=== PATIENT | male | born 1955 | race Caucasian/White ===

== ENCOUNTER 2018-05-03 15:48 | Inpatient (IN) | payer MEDICARE, MEDICAID ==
[~2018-05-03] VITALS: Ht 172.7 cm; Wt 95.3 kg
[2018-05-03] MEDS ORDERED: ACETAMINOPHEN 325 MG TABLET PO PRN (21:00)
[2018-05-03] MEDS ORDERED: MAGNESIUM HYDROXIDE 30 ML UDC PO PRN (21:00)
[2018-05-03] MEDS ORDERED: MAG HYDROX/AL HYDROX/SIMETH 30 ML UDC PO PRN (21:00)
[2018-05-03] MEDS ORDERED: TEMAZEPAM 7.5 MG CAPSULE PO PRN (21:00)
[2018-05-03] MEDS ORDERED: MULT1TAB73 PO (21:20)
[2018-05-03] MEDS ORDERED: AMLO5TAB9 PO (21:22)
[2018-05-03] MEDS ORDERED: ASCO500T8 PO (21:23)
[2018-05-03] MEDS ORDERED: ATOR40TA PO (21:24)
[2018-05-03] MEDS ORDERED: CHLO25CA22 PO (21:26)
[2018-05-03] MEDS ORDERED: FOLI1TAB16 PO (21:27)
[2018-05-03] MEDS ORDERED: SERT100T PO (21:28)
[2018-05-03] MEDS ORDERED: QUET100T PO (21:28)
[2018-05-03] MEDS ORDERED: THIA100T74 PO (21:29)
[2018-05-03] MEDS ORDERED: ZINC220C6 PO (21:30)
[2018-05-03 22:37] VITALS: BP 135/84
[2018-05-03] MEDS: LORAZEPAM 1 MG TABLET PO PRN (23:50)
--- NOTE | 2018-05-04 02:21 | NUR ---
ADMISSION NOTES ADMITTED THIS 63Y/O MALE, PATIENT ADMITTED FROM [facility] , PT IS ON 5150 HOLD , PER HOLD 5150 , DTS AND SUCIDIAL IDEATION WANTED TO HURT SELF,DEPRESSION ,LOST HIS RECIDENCY,ALCOHOL RELASPE, , UPON FACE TO FACE ASSESSMENT PATIENT IS A&O X-2,3 DEPRESSED,DISORGNIZED ,FLAT AFFECT ,EASILY AGITATED , PT.IS POOR HISTORIAN, POOR INSIGHT ,POOR JUDGEMENT ,V/S WNL, NO ACUTE DISTRESS NOTED , MD AWARE AND NOTIFIED OF THE ADMISSION , PT. ALLOWED ONLY SUPERFICIAL SKIN ASSESSMENT, PICTURES TAKEN AND PLACED IN THE CHART ,ENCOURAGED PT. VERBALIZED ANY FEELING CONCERN TO STAFF, ORIENT TO UNIT POLICY, WILL CONTINUE TO MONITOR FOR Q15, CONTRACT FOR SAFETY AND BEHAVIOR.
[2018-05-04 07:19] LABS: BASOPHILS % (AUTO) 0.7 % (0.0-2.0); EOSINOPHILS % (AUTO) 2.8 % (0.0-6.0); HEMATOCRIT 43 % (39-51); HEMOGLOBIN 14.8 g/dL (13.5-17.5); LYMPHOCYTES # (AUTO) 1.2 /CMM (0.8-4.8); LYMPHOCYTES % (AUTO) 16.5 % (20.0-44.0); MEAN CORPUSCULAR HGB CONC 34 g/dl (31.0-36.0); MEAN CORPUSCULAR VOLUME 98 fL (80-96); MONOCYTES # (AUTO) 0.6 /CMM (0.1-1.30); PLATELET COUNT (AUTO) 81 /CMM (150-450); RED BLOOD CELL COUNT(AUTO) 4.45 MIL/uL (4.5-6.0)
[2018-05-04 07:31] LABS: ALBUMIN 3.7 g/dL (3.4-5.0); BILIRUBIN,TOTAL 2.3 mg/dL (0.2-1.0); CALCIUM, SERUM 8.8 mg/dL (8.5-10.1); CREATININE 0.7 mg/dL (0.6-1.3); POTASSIUM 3.5 mmol/L (3.5-5.1); TOTAL PROTEIN, SERUM 6.8 g/dL (6.4-8.2)
[2018-05-04 07:52] LABS: LYMPHOCYTES % (MANUAL) 14 % (16-48); MONOCYTES % (MANUAL) 11 % (0-11.0); NEUTROPHILS % (MANUAL) 75 (42-76)
[2018-05-04 08:00] VITALS: BP 142/95
[2018-05-04] MEDS: LORAZEPAM 1 MG TABLET PO PRN (08:54)
--- NOTE | 2018-05-04 10:41 | NUR ---
RN NOTE: ALTAGRACIA NOTIFIED OF MED RECON.
[2018-05-04] MEDS: CHLORDIAZEPOXIDE HCL 25 MG CAPSULE PO SCH ×2 (12:50→17:15)
[2018-05-04 16:00] VITALS: BP 146/90
[2018-05-04] MEDS: SERTRALINE HCL 50 MG TABLET PO SCH (17:15)
[2018-05-04] MEDS: ATORVASTATIN 40 MG TABLET PO SCH (18:24)
--- NOTE | 2018-05-04 18:24 | NUR ---
RN NOTE: COMPUTER WITH SCANNER IS TAKEN. ADMINISTERED ATORVASTATIN TO PATIENT WITHOUT SCANNING.
[2018-05-04 19:51] LABS: APPEARANCE,URINE SL CLOUDY (CLEAR); BILIRUBIN,URINE 1+ (NEGATIVE); BLOOD, URINE NEGATIVE Ery/uL (NEGATIVE); COLOR,URINE YELLOW (YELLOW); KETONES,URINE TRACE (NEGATIVE); LEUKOCYTE ESTERASE ,URINE NEGATIVE (NEGATIVE); NITRITE, URINE NEGATIVE (NEGATIVE); PH,URINE 6.5 (5.0-8.0); PROTEIN,URINE NEGATIVE (NEGATIVE); UGLUCOSE NEGATIVE (NEGATIVE); UROBILINOGEN,URINE 0.2 EU/dL (0.2)
[2018-05-04 20:00] VITALS: BP 127/60
[2018-05-04 20:35] VITALS: BP 127/60
[2018-05-04 21:35] LABS: BACTERIA,URINE None seen /HPF (None Seen); RBC,URINE 0-2 /HPF (0-2); SQUAMOUS EPITHELIAL CELL,UR Rare /HPF (None Seen); WBC,URINE 0-2 /HPF (0-3)
--- NOTE | 2018-05-05 04:53 | NUR ---
RN NOTES REPORTED URIANALYSIS PROFILE RESULTS, NO NEW ORDERS AT THIS TIME.
[2018-05-05 07:40] LABS: ALBUMIN 3.8 g/dL (3.4-5.0); CREATININE 0.8 mg/dL (0.6-1.3); MAGNESIUM 1.8 mg/dL (1.8-2.4); PHOSPHORUS 3.5 mg/dL (2.5-4.9); POTASSIUM 3.7 mmol/L (3.5-5.1); TOTAL PROTEIN, SERUM 7.3 g/dL (6.4-8.2)
[2018-05-05 08:00] VITALS: BP 144/78
[2018-05-05] MEDS: ZINC SULFATE 220 MG CAPSULE PO SCH (10:21)
[2018-05-05] MEDS: THIAMINE HCL 100 MG TABLET PO SCH (10:21)
[2018-05-05] MEDS: AMLODIPINE BESYLATE 5 MG TABLET PO SCH (10:21)
[2018-05-05] MEDS: LORAZEPAM 1 MG TABLET PO PRN (10:21)
[2018-05-05] MEDS: SERTRALINE HCL 50 MG TABLET PO SCH (10:21)
[2018-05-05] MEDS: CHLORDIAZEPOXIDE HCL 25 MG CAPSULE PO SCH ×3 (10:22→17:11)
[2018-05-05] MEDS: FOLIC ACID 1 MG TABLET PO SCH (10:22)
--- NOTE | 2018-05-05 10:53 | NUR ---
WOUND CARE CONSULT: PT PRESENTS AMBULATORY AND CONTINENT WITH ESCHARS TO LEFT TOES, PRESENT ON ADMISSION. DRY ABRASIONS NOTED TO ARMS PRESENT ON ADMISSION. RECOMMEND DPM CONSULT. PT EXAMINED BY . IN AGREEMENT WITH PLAN OF CARE.
--- NOTE | 2018-05-05 11:15 | NUR ---
Initial Discharge Plan: Pt is currently homeless and does not have a relationship with his family members. Per pt, he does not want to be placed in a sober living and would be more interested in a group home facility. SW will work with the pt and the MD regarding appropriate discharge planning. SW will form a safe and proper discharge.
[2018-05-05 16:00] VITALS: BP 140/91
--- NOTE | 2018-05-05 16:19 | NUR ---
Group note: Pt attended a group session on 05/05/18 at 11AM discussing the topic of what memory resonates the most with them in their life and why it does. S: Pt stated, My aunt was the one person in my life that I had an authentic relationship with. She loved me like I was one of her own children. Which was something that my own mother was incapable of doing. O: Pt was present during the group session and was cooperative. Pt appeared to be in a depressed mood and presented with a tearful and emotional affect. Pt appeared to be anxious when opening up about his loved ones and began to move around in his chair. A: Pt understood that his mother had a past that really affected her because there was a lack of love it and therefore she was unable to show love to the pt as a result. He stated that he understood that and that he cannot hold it against her for the way that she treated him. He stated that he was grateful to have someone like his aunt in his life. P: Pt will continue milieu treatment and medication stabilization.
[2018-05-05] MEDS: ATORVASTATIN 40 MG TABLET PO SCH (17:11)
[2018-05-05 20:23] VITALS: BP 117/74
[2018-05-06] MEDS: LORAZEPAM 1 MG TABLET PO PRN (00:20)
[2018-05-06 07:39] LABS: ALBUMIN 3.4 g/dL (3.4-5.0); BILIRUBIN,TOTAL 1.3 mg/dL (0.2-1.0); CREATININE 0.8 mg/dL (0.6-1.3); MAGNESIUM 1.9 mg/dL (1.8-2.4); POTASSIUM 3.9 mmol/L (3.5-5.1); TOTAL PROTEIN, SERUM 6.9 g/dL (6.4-8.2)
[2018-05-06 08:00] VITALS: BP 139/80
[2018-05-06] MEDS: FOLIC ACID 1 MG TABLET PO SCH (09:35)
[2018-05-06] MEDS: THIAMINE HCL 100 MG TABLET PO SCH (09:36)
[2018-05-06] MEDS: CHLORDIAZEPOXIDE HCL 25 MG CAPSULE PO SCH ×3 (09:36→17:42)
[2018-05-06] MEDS: SERTRALINE HCL 50 MG TABLET PO SCH (09:36)
[2018-05-06] MEDS: ZINC SULFATE 220 MG CAPSULE PO SCH (09:37)
[2018-05-06] MEDS: AMLODIPINE BESYLATE 5 MG TABLET PO SCH (09:38)
--- NOTE | 2018-05-06 11:41 | NUR ---
0800 ASSUMED CARE OF PATIENT. PATIENT ALERT AND ORIENTED TIMES 2-3. PATIENT DENIES SI AND HI AT THIS TIME. PATIENT IN ROOM WITH NO SIGNS OF DISTRESS AT THIS TIME. PATIENT HAS SLIGHT TREMORS. PATIENTS VITALS STABLE. PATIENT DENIES PAIN AT THIS TIME. 0900 PATIENT MEDICATION COMPLIANT WITH ALL MEDICATIONS. PATIENT CALM AND COOPERATIVE. 1015 PATIENT IN DAY ROOM PARTICIPATING IN GROUPS. NO BEHAVIORAL PROBLEMS NOTED. 1130 PATIENT IN DAY ROOM INTERACTING WITH PEERS. PATIENT CALM AND COOPERATIVE. NO PRNS NEEDED. WILL CONTINUE TO MONITOR THROUGHOUT SHIFT.
[2018-05-06 16:02] VITALS: BP 126/77
[2018-05-06] MEDS: ATORVASTATIN 40 MG TABLET PO SCH (17:42)
--- NOTE | 2018-05-06 18:01 | NUR ---
1800 PATIENT IN BED RESTING AT THIS TIME. PATIENT DENIES SI AND HI THROUGHOUT SHIFT. PATIENT VITALS STABLE. PATIENT DENIES PAIN. PATIENT HAS NO SIGNS OF DISTRESS AT THIS TIME PATIENT MEDICATION COMPLIANT THROUGHOUT SHIFT. PATIENT HAS NO BEHAVIORAL PROBLEMS. PATIENT CALM AND COOPERATIVE. WILL ENDORSE TO EXPORT PACKER. BLAYNE GARCIA RN
[2018-05-06 20:00] VITALS: BP 104/50
[2018-05-07 08:00] VITALS: BP 131/69
[2018-05-07] MEDS: FOLIC ACID 1 MG TABLET PO SCH (08:22)
[2018-05-07] MEDS: CHLORDIAZEPOXIDE HCL 25 MG CAPSULE PO SCH ×3 (08:22→17:21)
[2018-05-07] MEDS: AMLODIPINE BESYLATE 5 MG TABLET PO SCH (08:22)
[2018-05-07] MEDS: ZINC SULFATE 220 MG CAPSULE PO SCH (08:22)
[2018-05-07] MEDS: THIAMINE HCL 100 MG TABLET PO SCH (08:23)
[2018-05-07] MEDS: SERTRALINE HCL 50 MG TABLET PO SCH (08:23)
--- NOTE | 2018-05-07 13:11 | NUR ---
SW sent a referral to two [facility]dc facilities for the pt that are listed below: [facility] (with attention to Marcelle) to the fax number: [phone] [facility] (with attention to Rebecca) to the fax number: [phone].
--- NOTE | 2018-05-07 14:09 | NUR ---
Rebecca ([phone] ext [phone]) called the SW and informed her that the pt has been in a correction facility before and would like to know which one he was admitted in previously because there is a share of cost that has not been paid at this time. She stated that she would speak to her retail director and determine whether or not the pt is accepted to the facility or not.
[2018-05-07 16:00] VITALS: BP 128/71
--- NOTE | 2018-05-07 16:01 | NUR ---
Rebecca ([phone]) from [facility] called the SW and stated that the pt is accepted to their facility.
[2018-05-07] MEDS: ATORVASTATIN 40 MG TABLET PO SCH (17:21)
[2018-05-07 20:00] VITALS: BP 108/54
[2018-05-08 08:00] VITALS: BP 125/73
[2018-05-08] MEDS: AMLODIPINE BESYLATE 5 MG TABLET PO SCH (08:27)
[2018-05-08] MEDS: SERTRALINE HCL 50 MG TABLET PO SCH (08:27)
[2018-05-08] MEDS: CHLORDIAZEPOXIDE HCL 25 MG CAPSULE PO SCH ×3 (08:27→16:35)
[2018-05-08] MEDS: ZINC SULFATE 220 MG CAPSULE PO SCH (08:28)
[2018-05-08] MEDS: THIAMINE HCL 100 MG TABLET PO SCH (08:28)
[2018-05-08] MEDS: FOLIC ACID 1 MG TABLET PO SCH (08:28)
[2018-05-08 16:00] VITALS: BP 125/69
[2018-05-08] MEDS: ATORVASTATIN 40 MG TABLET PO SCH (17:07)
--- NOTE | 2018-05-08 19:30 | NUR ---
GPS RN NOTE, RECEIVED PATIENT AWAKE AND IN BED NO S/S OR COMPLAINTS OF PAIN AT THIS TIME. PATIENT IS DISPLAYING NO S/S OF APPARENT DISTRESS AT THIS TIME. PATIENT BREATHING IS UNLABORED WITH EQUAL RISE AND FALL OF THE CHEST. PATIENT IS ALERT AND ORIENTED X 2 ON ROOM AIR WITH A SPO2 0F 95%. PATIENT IS MED COMPLAINT, DISORGANIZED, DEPRESSED, CONFUSED AT TIMES, AND NEEDS REORIENTATION. PATIENT DENIES SUICIDE AND HOMICIDAL IDEATIONS AT THIS TIME. PATIENT ASSISTED WITH TURNING AND REPOSITIONING Q2HR AND PRN FOR COMFORT AND CIRCULATION. PATIENT HAS NO NEEDS AT THIS TIME. PATIENT EDUCATED ON THE USE OF THE CALL KEYS. PATIENT BED SIDE RAILS ARE UP X 2 FOR SAFETY, BED IS LOCKED AND LOW. WILL CONTINUE TO MONITOR AND MAINTAIN SAFETY Q15 MIN WITH THE HELP OF STAFF.
[2018-05-08 20:00] VITALS: BP 111/57
[2018-05-09 08:00] VITALS: BP 128/73
[2018-05-09] MEDS: SERTRALINE HCL 50 MG TABLET PO SCH (08:22)
[2018-05-09] MEDS: FOLIC ACID 1 MG TABLET PO SCH (08:22)
[2018-05-09] MEDS: CHLORDIAZEPOXIDE HCL 25 MG CAPSULE PO SCH ×3 (08:24→17:27)
[2018-05-09] MEDS: ZINC SULFATE 220 MG CAPSULE PO SCH (08:24)
[2018-05-09] MEDS: AMLODIPINE BESYLATE 5 MG TABLET PO SCH (08:25)
[2018-05-09] MEDS: THIAMINE HCL 100 MG TABLET PO SCH (08:25)
[2018-05-09] MEDS: LORAZEPAM 1 MG TABLET PO PRN (08:27)
--- NOTE | 2018-05-09 08:27 | NUR ---
RN NOTES ADMINISTERED ATIVAN 1 MG PO,PRN FOR ANXIETY PER PATIENT REQUEAST V/S TAKEN BP-128/73, P-62, CONTINUED MONITORING.
[2018-05-09 16:00] VITALS: BP 108/67
[2018-05-09 16:42] LABS: BASOPHILS % (AUTO) 0.6 % (0.0-2.0); EOSINOPHILS % (AUTO) 3.5 % (0.0-6.0); HEMATOCRIT 43 % (39-51); HEMOGLOBIN 14.6 g/dL (13.5-17.5); LYMPHOCYTES # (AUTO) 1.4 /CMM (0.8-4.8); LYMPHOCYTES % (AUTO) 25.4 % (20.0-44.0); MEAN CORPUSCULAR HGB CONC 34 g/dl (31.0-36.0); MEAN CORPUSCULAR VOLUME 99 fL (80-96); MONOCYTES % (AUTO) 17.1 % (2.0-12.0); NEUTROPHILS % (AUTO) 53.4 % (43.0-81.0); PLATELET COUNT (AUTO) 185 /CMM (150-450); WHITE BLOOD COUNT (AUTO) 5.7 K/uL (4.3-11.0)
[2018-05-09 16:58] LABS: ALBUMIN 3.5 g/dL (3.4-5.0); BILIRUBIN,TOTAL 0.5 mg/dL (0.2-1.0); CALCIUM, SERUM 8.8 mg/dL (8.5-10.1); CREATININE 1.1 mg/dL (0.6-1.3); POTASSIUM 3.7 mmol/L (3.5-5.1); TOTAL PROTEIN, SERUM 6.7 g/dL (6.4-8.2)
[2018-05-09] MEDS: ATORVASTATIN 40 MG TABLET PO SCH (17:27)
--- NOTE | 2018-05-09 19:30 | NUR ---
GPS RN NOTE, RECEIVED PATIENT AWAKE AND IN BED NO S/S OR COMPLAINTS OF PAIN AT THIS TIME. PATIENT IS DISPLAYING NO S/S OF APPARENT DISTRESS AT THIS TIME. PATIENT BREATHING IS UNLABORED WITH EQUAL RISE AND FALL OF THE CHEST. PATIENT IS ALERT AND ORIENTED X 2 ON ROOM AIR WITH A SPO2 0F 94%. PATIENT IS MED COMPLAINT, COOPERATIVE, DISORGANIZED, DEPRESSED, AND NEEDS REORIENTATION. PATIENT DENIES SUICIDE AND HOMICIDAL IDEATIONS AT THIS TIME. PATIENT ASSISTED WITH TURNING AND REPOSITIONING Q2HR AND PRN FOR COMFORT AND CIRCULATION. PATIENT HAS NO NEEDS AT THIS TIME. PATIENT EDUCATED ON THE USE OF THE CALL KEYS. PATIENT BED SIDE RAILS ARE UP X 2 FOR SAFETY, BED IS LOCKED AND LOW. WILL CONTINUE TO MONITOR AND MAINTAIN SAFETY Q15 MIN WITH THE HELP OF STAFF.
--- NOTE | 2018-05-09 20:00 | NUR ---
GPS RN NOTE, PATIENT REFUSED HAVE A SKIN EXAM AND PICTURES DONE TONIGHT. OFFERED TO TAKE PICTURES THREE TIMES AND STILL PATIENT REFUSED STATING, " I'M ALL SET I DON'T WANT PICTURES TAKEN OF MY SCABS ". EDUCATED THIS PATIENT ON OUR [facility] POLICY ON SKIN EXAMS AND TAKING PICTURES. WILL CONTINUE TO MONITOR THIS PATIENT.
[2018-05-09 20:27] VITALS: BP 116/67
[2018-05-10 07:09] LABS: BASOPHILS % (AUTO) 0.3 % (0.0-2.0); EOSINOPHILS % (AUTO) 3.6 % (0.0-6.0); HEMATOCRIT 43 % (39-51); HEMOGLOBIN 14.3 g/dL (13.5-17.5); LYMPHOCYTES # (AUTO) 1.2 /CMM (0.8-4.8); LYMPHOCYTES % (AUTO) 23.8 % (20.0-44.0); MEAN CORPUSCULAR HGB CONC 34 g/dl (31.0-36.0); MEAN CORPUSCULAR VOLUME 99 fL (80-96); MONOCYTES # (AUTO) 0.9 /CMM (0.1-1.30); MONOCYTES % (AUTO) 18.8 % (2.0-12.0); NEUTROPHILS # (AUTO) 2.6 /CMM (1.8-8.9); NEUTROPHILS % (AUTO) 53.5 % (43.0-81.0); PLATELET COUNT (AUTO) 187 /CMM (150-450); RED BLOOD CELL COUNT(AUTO) 4.31 MIL/uL (4.5-6.0); WHITE BLOOD COUNT (AUTO) 4.9 K/uL (4.3-11.0)
[2018-05-10 07:17] LABS: CALCIUM, SERUM 8.5 mg/dL (8.5-10.1); CREATININE 0.9 mg/dL (0.6-1.3); POTASSIUM 3.8 mmol/L (3.5-5.1)
[2018-05-10 07:18] LABS: ALBUMIN 3.3 g/dL (3.4-5.0); BILIRUBIN,TOTAL 0.6 mg/dL (0.2-1.0); MAGNESIUM 1.8 mg/dL (1.8-2.4); PHOSPHORUS 3.1 mg/dL (2.5-4.9); TOTAL PROTEIN, SERUM 6.4 g/dL (6.4-8.2)
[2018-05-10 07:53] LABS: BAND % (MANUAL) 2 % (0.0-5.0); EOSINOPHILS % (MANUAL) 3 % (0-4); LYMPHOCYTES % (MANUAL) 23 % (16-48); MONOCYTES % (MANUAL) 12 % (0-11.0); NEUTROPHILS % (MANUAL) 60 (42-76)
[2018-05-10 08:00] VITALS: BP 100/78
[2018-05-10] MEDS: CHLORDIAZEPOXIDE HCL 25 MG CAPSULE PO SCH ×2 (08:33→17:45)
[2018-05-10] MEDS: THIAMINE HCL 100 MG TABLET PO SCH (08:33)
[2018-05-10] MEDS: SERTRALINE HCL 50 MG TABLET PO SCH (08:33)
[2018-05-10] MEDS: AMLODIPINE BESYLATE 5 MG TABLET PO SCH (08:34)
[2018-05-10] MEDS: FOLIC ACID 1 MG TABLET PO SCH (08:34)
[2018-05-10] MEDS: ZINC SULFATE 220 MG CAPSULE PO SCH (08:34)
--- NOTE | 2018-05-10 15:42 | NUR ---
NEGRO spoke to the pt and informed him about the placement options that accepted him such as [facility]. He stated that he was looking into his own placement and is considering [facility]. NEGRO stated that he had mentioned that he did not want to be in sober living and he stated that he had changed his mind. NEGRO stated that she would start focusing on that placement option then.
--- NOTE | 2018-05-10 15:50 | NUR ---
NEGRO called [facility] ([phone]), and left a message on their voicemail stating that the SW would like a call back regarding placement for a pt who would like to be in a sober living.
[2018-05-10 16:00] VITALS: BP 122/67
[2018-05-10] MEDS: ATORVASTATIN 40 MG TABLET PO SCH (17:45)
[2018-05-10 20:00] VITALS: BP 107/57
[2018-05-11 08:00] VITALS: BP 123/63
[2018-05-11] MEDS: ZINC SULFATE 220 MG CAPSULE PO SCH (08:45)
[2018-05-11] MEDS: THIAMINE HCL 100 MG TABLET PO SCH (08:45)
[2018-05-11] MEDS: FOLIC ACID 1 MG TABLET PO SCH (08:45)
[2018-05-11] MEDS: SERTRALINE HCL 50 MG TABLET PO SCH (08:45)
[2018-05-11] MEDS: CHLORDIAZEPOXIDE HCL 25 MG CAPSULE PO SCH (08:45)
[2018-05-11 08:46] VITALS: BP 123/63
[2018-05-11] MEDS: AMLODIPINE BESYLATE 5 MG TABLET PO SCH (08:46)
--- NOTE | 2018-05-11 08:52 | NUR ---
NEGRO called Rebecca ([phone]) from [facility] and stated that the pt will be discharging to her facility today. She stated that the pt has a shared of cost that is around $1000 and that she needs to find out what SNF he was in previously to determine how many days he has available. NEGRO stated that she would talk to the pt or the account contact associate on his facesheet, Naty ([phone]), to figure out where he has been previously.
--- NOTE | 2018-05-11 11:08 | NUR ---
SW called [facility] ([phone]), and spoke to Jose Elias who stated that the pt was accepted to their facility two times in the past and was unable to make it to the facility because he would go looking for alcohol instead. They stated that they would not be able to accommodate this patient.
--- NOTE | 2018-05-11 11:19 | NUR ---
NEGRO called Bhumika ([phone]), from [facility], and stated that the SW has a pt that needs to be placed in a sober living. NEGRO stated that the pt has the appropriate amount of foods and has been off of alcohol for about 8 days now. Bhumika stated that the SW would have to call their warehouse order filler, Donald ([phone]), and have him conduct an assessment with the pt before he is accepted.
--- NOTE | 2018-05-11 11:22 | NUR ---
NEGRO called [facility] material handling warehouse supervisor, Donald ([phone]), and spoke to him regarding the pt. The SW stated that he can discharged at any today as long as he is accepted. NEGRO then handed the phone to the pt to conduct the assessment and go over the rules of the sober living. Once the pt finished his conversation, the SW spoke to Donald and he stated that the pt was accepted and that he would need him at the facility by 2pm.
--- NOTE | 2018-05-11 13:30 | NUR ---
GPS DISCHARGE NOTE: [facility]CHARGE TO [facility] AT [address] [place], [place] [address] VIA TAXI. PT IN STABLE CONDITION DENIES SI/HI , DENIES BEEN DEPRESSED, AMBULATORY , SELF CARED, VSS. SKIN CHECKED PICTURES PLACED IN THE CHART,PT COOPERATIVE A/O X3. MEDICATIONS PRESCRIPTIONS GIVEN,EXPLAIN TO PT . DR PRIMO Lew ORDER TO DISCHARGE PT . ORDER PLACED AND CARED OUT,ALL BELONGING AND VALUABLES GIVEN TO PT.
--- NOTE | 2018-05-11 13:45 | NUR ---
Discharge Note: Pt was discharged to [facility] located at [address] [place] [address]; . Pt was transported via taxi at 1:30PM. salesperson men's furnishings at [facility] is Bhumika ([phone]). Upon discharge, the pt appeared to be in a euthymic mood and presented with an anxious affect. He stated that he was nervous about going back into a sober living environment but he also stated that this time he needs more help than before. Pt denied both suicidal and homicidal ideation as well as auditory and visual hallucinations. Pt was provided with substance abuse referrals upon discharge that are listed below. Pt was directed to [facility] located at [address] [place] [address]; ([phone]). provided him with the hours of operation which are Thursday-Thursday 8AM-5PM. Pt was referred to time study clerk, Dr. Juvencio Monaco, located at [address] [place] [id number]; ; fax: [phone]. Substance Abuse Referrals: [facility] [address] [place] [address] Tel. [facility] [address] [place] Provider Mental Health Treatment Tele-dermatology HIV Services Telemedicine Services [place] [facility] [address] [place] [address] [facility] [address] [place] [address]
--- NOTE | 2018-05-25 15:26 | NUR ---
15 Day Substance Abuse Follow Up: Pt was discharged to [facility]. SW called the sober living's number ([phone]) and spoke to Bhumika in an attempt to contact the pt and was told that the pt is no longer a resident there. SW was told that he does not currently own a phone.
== END 2018-05-11 13:30 | disposition home or self-care (01) | DRG 881 ==
LOC: GPS 20:28
PROVIDERS: ADMIT Psychiatry & Neurology Psychiatry; ATTEND Psychiatry & Neurology Psychiatry
DX: F32.9 Major depressive disorder, single episode, unspecified (principal); F10.239 Alcohol dependence with withdrawal, unspecified; R45.851 Suicidal ideations; F29 Unspecified psychosis not due to a substance or known physiological condition; F41.9 Anxiety disorder, unspecified; Y90.9 Presence of alcohol in blood, level not specified; Z96.642 Presence of left artificial hip joint; Z98.890 Other specified postprocedural states; Z79.899 Other long term (current) drug therapy; K70.10 Alcoholic hepatitis without ascites; I10 Essential (primary) hypertension; S90.812A Abrasion, left foot, initial encounter; X58.XXXA Exposure to other specified factors, initial encounter; Z91.5 Personal history of self-harm; Y92.9 Unspecified place or not applicable; Z73.6 Limitation of activities due to disability
CPT/HCPCS: 36415; 73630-TC; 80053-TC; 80061-TC; 81000-TC; 83735-TC; 84100-TC; 85025-TC; 87081-TC